=== PATIENT | female | born 1985 | race Caucasian/White ===

== ENCOUNTER 2023-12-06 11:32 | Outpatient (REF) | payer OTHER, SELFPAY ==
[2023-12-06 13:25] LABS: Influenza Virus A Antigen Negative; Influenza Virus B Antigen Negative; Internal Control Within Normal Limits; Respiratory Syncytial Virus Not Detected (NOT DETECTE)
== END 2023-12-06 11:33 | disposition home or self-care (01) ==
LOC: LAB 11:32
PROVIDERS: PCP Family Medicine; Visit Provider Family Medicine
DX: J01.90 Acute sinusitis, unspecified (principal)
CPT/HCPCS: 87420; 87804

== ENCOUNTER 2024-08-29 06:31 | Outpatient (OUT) | payer OTHER, SELFPAY ==
[2024-08-29 06:49] LABS: Basophils Percent Auto 0.6 % (0.2-2.0); Eosinophils Absolute Auto 0.1 10^3/uL (0.0-0.7); Eosinophils Percent Auto 1.8 % (0.9-7.0); Hematocrit 39.5 % (36.0-48.0); Immature Granulocytes Abs Auto 0.01 10^3/uL (0.00-0.03); Immature Granulocytes Pct Auto 0.2 % (0.0-0.5); Lymphocytes Absolute Auto 1.6 10^3/uL (1.2-3.8); Lymphocytes Percent Auto 25.7 % (20.5-60.0); Mean Corpuscular HGB Conc 32.9 g/dL (29.9-35.2); Mean Corpuscular Hemoglobin 29.3 pg (26.7-34.0); Monocytes Absolute Auto 0.7 10^3/uL (0.3-0.8); Monocytes Percent Auto 11.1 % (1.7-12.0); Neutrophils Absolute Auto 3.8 10^3/uL (1.4-6.5); Neutrophils Percent Auto 60.6 % (43.0-75.0); Platelet Count 162 10^3/uL (150-450); Red Blood Count 4.44 10^6/uL (4.20-5.40); Red Cell Distribution Width 12.3 % (11.0-15.0); White Blood Count 6.2 10^3/uL (4.0-11.0)
[2024-08-29 07:19] LABS: Estimated Average Glucose 103 mg/dL; Glycohemoglobin A1C 5.2 % (4.5-6.2)
[2024-08-29 07:39] LABS: Alanine Aminotransferase 16 U/L (14-59); Albumin Level 3.5 g/dL (3.4-5.0); Alkaline Phosphatase 64 U/L (46-116); Anion Gap 14.9; Aspartate Amino Transferase 15 U/L (15-37); BUN Creatinine Ratio 12.4; Bilirubin Total 0.4 mg/dL (0.2-1.0); Calcium 8.6 mg/dL (8.5-10.1); Carbon Dioxide 24.6 mmol/L (21.0-32.0); Chloride 107 mmol/L (98-107); Estimated GFR (African America >60 (>=60 mL/min/1.73m^2); Estimated GFR (Non-African Ame 50 (>=60 mL/min/1.73m^2); Free T3 2.91 pg/mL (2.18-3.98); Globulin 3.5 g/dL; Glucose 92 mg/dL (74-106); HDL Cholesterol 58 mg/dL (40-60); Potassium 4.5 mmol/L (3.5-5.1); Sodium 142 mmol/L (136-145); Thyroid Stimulating Hormone 3.392 uIU/mL (0.358-3.740); Triglycerides 87 mg/dL (<=150); VLDL CHOLESTEROL 17.4 mg/dL
[2024-08-29 07:52] LABS: Cholesterol 186 mg/dL (<=200)
[2024-08-29 07:55] LABS: Chol HDL Ratio 3.2
[2024-08-30 09:11] LABS: Insulin 9.7 uIU/mL (2.6-24.9)
== END 2024-08-29 06:32 | disposition home or self-care (01) ==
LOC: LAB 06:31
PROVIDERS: PCP Family Medicine; Visit Provider Nurse Practitioner Family
DX: Z00.00 Encounter for general adult medical examination without abnormal findings (principal); E03.9 Hypothyroidism, unspecified
CPT/HCPCS: 36415; 80053; 80061; 83036; 83525; 84436; 84443; 84481; 85025

== ENCOUNTER 2025-06-27 06:38 | Outpatient (OUT) | payer OTHER, SELFPAY ==
--- OUTSIDE RECORDS SUMMARY | 2025-06-27 06:41 | XMS_ITS | CCD ---
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 Name Role Phone Cali Bowen Unavailable HOY ., DR BONE Admitting Unavailable HOY ., DR BONE Attending Unavailable HOY ., DR BONE Primary Care Unavailable HOY ., DR BONE Consulting Unavailable HOY ., DR BONE Admitting Unavailable HOY ., DR BONE Attending Unavailable HOY ., DR BONE Primary Care Unavailable HOY ., DR BONE Consulting Unavailable HOY ., DR BONE Admitting Unavailable HOY ., DR BONE Attending Unavailable HOY ., DR BONE Primary Care Unavailable HOY ., DR BONE Consulting Unavailable HOY ., DR BONE Admitting Unavailable HOY ., DR BONE Attending Unavailable HOY ., DR BONE Primary Care Unavailable HOY ., DR BONE Consulting Unavailable HOY ., DR BONE Admitting Unavailable HOY ., DR BONE Attending Unavailable HOY ., DR BONE Primary Care Unavailable HOY ., DR BONE Consulting Unavailable HOY ., DR BONE Admitting Unavailable HOY ., DR BONE Attending Unavailable HOY ., DR BONE Primary Care Unavailable HOY ., DR BONE Consulting Unavailable HOY ., DR BONE Admitting Unavailable HOY ., DR BONE Attending Unavailable HOY ., DR BONE Primary Care Unavailable HOY ., DR BONE Consulting Unavailable FRANK, AHMAD Admitting Unavailable FRANK, AHMAD Attending Unavailable HOY ., DR BONE Primary Care Unavailable FRANK, AHMAD Consulting Unavailable FRANK, AHMAD Admitting Unavailable FRANK, AHMAD Attending Unavailable HOY ., DR BONE Primary Care Unavailable Allergies Allergy Classification Reported Allergen(s) Allergy Type Date of Onset Reaction(s) Facility (1 source) Latex Drug allergy rash [facility] Other (2 sources) Desonide Drug Allergy 11-23-2013 [facility] (2 sources) Latex Drug allergy (disorder) 07-17-2013 [facility] Medications Current Medications Medication Drug Class(es) Dates Sig (Normalized) Sig (Original) azithromycin 250 mg oral tablet (1 source) Macrolide Antimicrobial Zithromax Z-Jed 250 MG 2 tablet on the first day, then 1 tablet daily for 4 days Orally Once a day for 5 day(s) Active benzonatate 200 mg oral capsule (1 source) Non-narcotic Antitussive Start: 03-28-2022 take 1 capsule by mouth every eight hours Benzonatate 200 MG 1 capsule Orally Three times a day for 5 day(s) February, Active lidocaine hydrochloride 20 mg/ml mucous membrane topical solution (1 source) Antiarrhythmic, Amide Local Anesthetic Start: 03-28-2022 take 10 mL by mouth every three hours Lidocaine Viscous 2% 10 ml swish in mouth, gargle, and spit. DO NOT swallow every 3 hrs for 2 days February, Active predniSONE 20 mg oral tablet (1 source) Start: 03-28-2022 take 1 tablet by mouth every twelve hours predniSONE 20 MG 1 tablet Orally twice a day for 5 days February, Active Problems Problem Classification Problem Date Documented Date Episodic/Chronic Asthma (2 sources) Asthmatic bronchitis; Translations: [Unspecified asthma with (acute) exacerbation] Onset: 03-28-2022 Resolved: 03-28-2022 Chronic Diabetes mellitus without complication (1 source) Other abnormal glucose; Translations: [OTHER ABNORMAL GLUCOSE] Onset: 01-23-2023 Episodic Nutritional deficiencies (4 sources) Vitamin D deficiency, unspecified; Translations: [VITAMIN D DEFICIENCY UNSPECIFIED] Onset: 09-22-2022 Chronic Other upper respiratory infections (2 sources) Sore throat symptom; Translations: [Acute pharyngitis, unspecified] Onset: 03-28-2022 Resolved: 03-28-2022 Episodic Thyroid disorders (9 sources) Thyrotoxicosis with diffuse goiter without thyrotoxic crisis or storm; Translations: [Hypothyroidism, unspecified] Onset: 08-31-2022 Chronic Results Test Name Value Interpretation Reference Range Facility INSULINon 01-21-2023 Insulin 13.7 uIU/mL Normal 2.6-24.9 [facility] Comment on above: Performed By: #### F T3, TSH, T4 #### [facility] [address] [address] [address] Ramsey Lambert GLYCOHEMOGLOBIN A1Con 2022 ADA RECOMMENDATION SEE BELOW Normal [facility] Comment on above: Result Comment: ADA RECOMMENDED LIMIT 4.0 - 6.0 ADA THERAPEUTIC TARGET < 7.0 ACTION SUGGESTED > 7.0 Performed By: #### F T3, TSH, T4 #### [facility] [address] [address] [address] Ramsey Lambert Glucose [Mass/Vol] 97 mg/dL Normal [facility] Comment on above: Performed By: #### F T3, TSH, T4 #### [facility] [address] [place] [address] Dr. Ramsey Lambert HbA1c (Bld) [Mass fraction] 5.0 % Normal 4.5-6.2 [facility] Comment on above: Performed By: #### F T3, TSH, T4 #### [facility] [address] [place] [address] Dr. Ramsey Lambert FREE THYROXINE INDEX T7on FTI 2.91 Normal 1.30-4.50 [facility] Comment on above: Performed By: #### F T3, TSH, T4 #### [facility] [address] [place] [address] Dr. Ramsey Lambert T3U 35.0 % Normal 30.0-39.0 [facility] Comment on above: Performed By: #### F T3, TSH, T4 #### [facility] [address] [place] [address] Dr. Ramsey Lambert T4 [Mass/Vol] 8.30 ug/dL Normal 4.80-13.90 [facility] Comment on above: Performed By: #### F T3, TSH, T4 #### [facility] [address] [place] [address] Dr. Ramsey Lambert TSHon 01-11-2023 TSH 0.547 uIU/mL Normal 0.358-3.740 [facility] Comment on above: Performed By: #### F T3, TSH, T4 #### [facility] [address] [place] [address] Dr. Ramsey Lambert THYROID ANTIBODIESon 023 Thyroglobulin Antibody 1.1 IU/mL Critically high 0.0-0.9 [facility] Comment on above: Result Comment: Thyr oglobulin Antibody measured by Norberto Jennings Methodology Performed By: #### T HYRABS #### [facility] [address] [place] [address] Dr. Ramsey Lambert Thyroid Peroxidase (TPO) Ab 99 IU/mL Critically high 0-34 [facility] Comment on above: Performed By: #### T HYRABS #### [facility] [address] [place] [address] Dr. Ramsey Lambert FREE T3on 11-12-2022 FREE T3 2.46 pg/mlL Normal 2.18-3.98 [facility] Comment on above: Performed By: #### F T3, TSH, T4 #### [facility] [address] [place] [address] Dr. Ramsey Lambert T4on 11-12-2022 T4 [Mass/Vol] 9.10 ug/dL Normal 4.80-13.90 [facility] Comment on above: Performed By: #### F T3, TSH, T4 #### [facility] [address] [place] [address] Dr. Ramsey Lambert TSHon 11-12-2022 TSH 0.512 uIU/mL Normal 0.358-3.740 [facility] Comment on above: Performed By: #### F T3, TSH, T4 #### [facility] [address] [place] [address] Dr. Ramsey Lambert THYROID ANTIBODIESon 022 Thyroglobulin Antibody 1.1 IU/mL Critically high 0.0-0.9 [facility] Comment on above: Result Comment: Thyr oglobulin Antibody measured by Norberto Jennings Methodology Performed By: #### F T3, TSH, T4 #### [facility] [address] [place] [address] Dr. Ramsey Lambert Thyroid Peroxidase (TPO) Ab 117 IU/mL Critically high 0-34 [facility] Comment on above: Performed By: #### F T3, TSH, T4 #### [facility] [address] [address] [address] Ramsey Lambert VITAMIN D 25 OHon 09-22-2022 VIT D 25-OH 24.6 ng/mL Normal [facility] Comment on above: Performed By: #### V ITAD #### [facility] [address] [address] [address] Ramsey Lambert VIT D RANGES SEE BELOW Normal [facility] Comment on above: Result Comment: <20 ng/mL Vit D deficient 20 - <30 ng/mL Vit D insufficient 30 - 100 ng/mL Vit D sufficient >100 ng/mL Potential Toxicity Performed By: #### V ITAD #### [facility] [address] [place] [address] Dr. Ramsey Lambert FREE T3on 08-31-2022 FREE T3 2.50 pg/mlL Normal 2.18-3.98 [facility] Comment on above: Performed By: #### F T3, T4, TSH #### [facility] [address] [place] [address] Dr. Ramsey Lambert T4on 08-31-2022 T4 [Mass/Vol] 7.10 ug/dL Normal 4.80-13.90 [facility] Comment on above: Performed By: #### F T3, TSH, T4 #### [facility] [address] [place] [address] Dr. Ramsey Lambert TSHon 08-31-2022 TSH 3.127 uIU/mL Normal 0.358-3.740 [facility] Comment on above: Performed By: #### F T3, TSH, T4 #### [facility] [address] [place] [address] Dr. Ramsey Lambert FREE T3on 08-02-2022 FREE T3 1.83 pg/mlL Critically low 2.18-3.98 [facility] Comment on above: Performed By: #### F T3, TSH, T4 #### [facility] [address] [place] [address] Dr. Ramsey Lambert T4on 08-02-2022 T4 [Mass/Vol] 6.10 ug/dL Normal 4.80-13.90 [facility] Comment on above: Performed By: #### F T3, TSH, T4 #### [facility] [address] [address] [address] Ramsey Lambert TSHon 08-02-2022 TSH 10.833 uIU/mL Critically high 0.358-3.740 [facility] Comment on above: Performed By: #### F T3, TSH, T4 #### [facility] [address] [place] [address] Dr. Ramsey Lambert T4, T3U, FTI [facility]ABCOR[facility]on 06-25 Free Thyroxine Index 0.9 Critically low 1.2-4.9 [facility] Comment on above: Performed By: #### T HYLC #### [facility] [address] [place] [address] Dr. Ramsey Lambert T3 Uptake 24 % Normal 24-39 [facility] Comment on above: Performed By: #### T HYLC #### [facility] [address] [address] [address] Ramsey Lambert T4 [Mass/Vol] 3.8 ug/dL Critically low 4.5-12.0 [facility] Comment on above: Performed By: #### T HYLC #### [facility] [address] [place] [address] Dr. Ramsey Lambert FREE T3on 06-24-2022 FREE T3 1.83 pg/mlL Critically low 2.18-3.98 [facility] Comment on above: Performed By: #### F T3, TSH #### [facility] [address] [place] [address] Dr. Ramsey Lambert TSHon 06-24-2022 TSH 38.621 uIU/mL Critically high 0.358-3.740 [facility] Comment on above: Performed By: #### F T3, TSH #### [facility] [address] [place] [address] Dr. Ramsey Lambert [facility] CBC AUTO DIFFon 06-17-2022 BASO # 0.0 103/ul Normal 0.0-0.1 [facility] Comment on above: Performed By: #### F T3, TSH, T4 #### [facility] [address] [place] [address] Dr. Ramsey Lambert Basophils/100 WBC (Bld) 0.6 % Normal 0.2-2.0 [facility] Comment on above: Performed By: #### F T3, TSH, T4 #### [facility] [address] [place] [address] Dr. Ramsey Lambert EO # 0.1 103/ul Normal 0.0-0.7 [facility] Comment on above: Performed By: #### F T3, TSH, T4 #### [facility] [address] [place] [address] Dr. Ramsey Lambert Eosinophils/100 WBC (Bld) 2.1 % Normal 0.9-7.0 [facility] Comment on above: Performed By: #### F T3, TSH, T4 #### [facility] [address] [place] [address] Dr. Ramsey Lambert Erythrocyte distribution width (RBC) [Ratio] 12.4 % Normal 11.0-15.0 [facility] Comment on above: Performed By: #### F T3, TSH, T4 #### [facility] [address] [place] [address] Dr. Ramsey Lambert Hematocrit (Bld) [Volume fraction] 40.4 % Normal 36.0-48.0 [facility] Comment on above: Performed By: #### F T3, TSH, T4 #### [facility] [address] [place] [address] Dr. Ramsey Lambert Hemoglobin (Bld) [Mass/Vol] 13.3 g/dL Normal 12.0-16.0 [facility] Comment on above: Performed By: #### F T3, TSH, T4 #### [facility] [address] [place] [address] Dr. Ramsey Lambert IG # 0.00 10e3/ul Normal 0.00-0.03 [facility] Comment on above: Performed By: #### F T3, TSH, T4 #### [facility] [address] [address] [address] Ramsey Lambert IG % 0.0 % Normal 0.0-0.5 [facility] Comment on above: Performed By: #### F T3, TSH, T4 #### [facility] [address] [place] [address] Dr. Ramsey Lambert LYMPH # 2.2 103/ul Normal 1.2-3.8 [facility] Comment on above: Performed By: #### F T3, TSH, T4 #### [facility] [address] [place] [address] Dr. Ramsey Lambert Lymphocytes/100 WBC (Bld) 46.3 % Normal 20.5-60.0 [facility] Comment on above: Performed By: #### F T3, TSH, T4 #### [facility] [address] [place] [address] Dr. Ramsey Lambert MCH (RBC) [Entitic mass] 29.6 pg Normal 26.7-34.0 [facility] Comment on above: Performed By: #### F T3, TSH, T4 #### [facility] [address] [place] [address] Dr. Ramsey Lambert MCHC (RBC) [Mass/Vol] 32.9 g/dL Normal 29.9-35.2 [facility] Comment on above: Performed By: #### F T3, TSH, T4 #### [facility] [address] [place] [address] Dr. Ramsey Lambert MCV (RBC) [Entitic vol] 90.0 fL Normal 81.0-99.0 [facility] Comment on above: Performed By: #### F T3, TSH, T4 #### [facility] [address] [place] [address] Dr. Ramsey Lambert MONO # 0.5 103/ul Normal 0.3-0.8 [facility] Comment on above: Performed By: #### F T3, TSH, T4 #### [facility] [address] [place] [address] Dr. Ramsey Lambert Monocytes/100 WBC (Bld) 10.3 % Normal 1.7-12.0 [facility] Comment on above: Performed By: #### F T3, TSH, T4 #### [facility] [address] [place] [address] Dr. Ramsey Lambert NEUT # 1.9 103/ul Normal 1.4-6.5 [facility] Comment on above: Performed By: #### F T3, TSH, T4 #### [facility] [address] [place] [address] Dr. Ramsey Lambert Neutrophils/100 WBC (Bld) 40.7 % Critically low 43.0-75.0 [facility] Comment on above: Performed By: #### F T3, TSH, T4 #### [facility] [address] [place] [address] Dr. Ramsey Lambert Platelet mean volume (Bld) [Entitic vol] 11.5 fL Normal 9.5-13.5 [facility] Comment on above: Performed By: #### F T3, TSH, T4 #### [facility] [address] [place] [address] Dr. Ramsey Lambert PLT 203 103/ul Normal 150-450 [facility] Comment on above: Performed By: #### F T3, TSH, T4 #### [facility] [address] [place] [address] Dr. Ramsey Lambert RBC 4.49 106/ul Normal 4.20-5.40 [facility] Comment on above: Performed By: #### F T3, TSH, T4 #### [facility] [address] [place] [address] Dr. Ramsey Lambert WBC 4.8 103/ul Normal 4.0-11.0 [facility] Comment on above: Performed By: #### F T3, TSH, T4 #### [facility] [address] [place] [address] Dr. Ramsey Lambert [employer] PROFILEon 022 Albumin [Mass/Vol] 4.1 g/dL Normal 3.4-5.0 [facility] Comment on above: Performed By: #### H FPF #### [facility] [address] [place] [address] Dr. Ramsey Lambert Albumin/Globulin [Mass ratio] 1.3 {ratio} Normal [facility] Comment on above: Performed By: #### H FPF #### [facility] [address] [address] [address] Ramsey Lambert ALP [Catalytic activity/Vol] 55 U/L Normal 46-116 [facility] Comment on above: Performed By: #### H FPF #### [facility] [address] [address] [address] Ramsey Lambert ALT [Catalytic activity/Vol] 16 U/L Normal 14-59 [facility] Comment on above: Performed By: #### H FPF #### [facility] [address] [address] [address] Ramsey Lambert AST [Catalytic activity/Vol] 16 U/L Normal 15-37 [facility] Comment on above: Performed By: #### H FPF #### [facility] [address] [address] [address] Ramsey Lambert Bilirubin [Mass/Vol] 0.4 mg/dL Normal 0.2-1.0 [facility] Comment on above: Performed By: #### H FPF #### [facility] [address] [address] [address] Ramsey Lambert Calcium [Mass/Vol] 8.7 mg/dL Normal 8.5-10.1 [facility] Comment on above: Performed By: #### H FPF #### [facility] [address] [address] [address] Ramsey Lambert Chloride [Moles/Vol] 104 mmol/L Normal 98-107 [facility] Comment on above: Performed By: #### H FPF #### [facility] [address] [place] [address] Dr. Ramsey Lambert CHOL-HDL RATIO NORM SEE BELOW Normal [facility] Comment on above: Result Comment: 3.3 - 4.4 LOW RISK 4.4 - 7.1 AVERAGE RISK 7.1 - 11.0 MODERATE RISK >11.0 HIGH RISK Performed By: #### H FPF #### [facility] [address] [address] [address] Ramsey Lambert Cholesterol [Mass/Vol] 209 mg/dL Critically high <=200 [facility] Comment on above: Performed By: #### H FPF #### [facility] [address] [address] [address] Ramsey Lambert Cholesterol in HDL [Mass/Vol] 64 mg/dL Critically high 40-60 [facility] Comment on above: Performed By: #### H FPF #### [facility] [address] [address] [address] Ramsey Lambert Cholesterol in LDL [Mass/Vol] 132.8 mg/dL Normal [facility] Comment on above: Performed By: #### H FPF #### [facility] [address] [address] [address] Ramsey Lambert Cholesterol.total/Ch olesterol in HDL [Mass ratio] 3.3 {ratio} Normal [facility] Comment on above: Performed By: #### H FPF #### [facility] [address] [address] [address] Ramsey Lambert CO2 [Moles/Vol] 25.9 mmol/L Normal 21.0-32.0 [facility] Comment on above: Performed By: #### H FPF #### [facility] [address] [address] [address] Ramsey Lambert Creatinine [Mass/Vol] 1.02 mg/dL Normal 0.55-1.02 [facility] Comment on above: Performed By: #### H FPF #### [facility] [address] [address] [address] Ramsey Lambert Globulin (S) [Mass/Vol] 3.2 g/dL Normal [facility] Comment on above: Performed By: #### H FPF #### [facility] [address] [address] [address] Ramsey Lambert Glucose [Mass/Vol] 93 mg/dL Normal 74-106 [facility] Comment on above: Performed By: #### H FPF #### [facility] [address] [address] [address] Ramsey Lambert HDL NORMAL > or = 60 mg/dl - LOW CARDIOVASCULAR RISK <40 mg/dl - HIGH CARDIOVASCULAR RISK Normal [facility] Comment on above: Performed By: #### H FPF #### [facility] [address] [address] [address] Ramsey Lambert LDL CALC NORMAL SEE BELOW Normal [facility] Comment on above: Result Comment: <100 mg/dl OPTIMAL 100 - 129 mg/dl NEAR OR ABOVE OPTIMAL 130 - 159 mg/dl BORDERLINE HIGH 160 - 189 mg/dl HIGH >190 mg/dl VERY HIGH Performed By: #### H FPF #### [facility] [address] [address] [address] Ramsey Lambert Potassium [Moles/Vol] 3.9 mmol/L Normal 3.5-5.1 [facility] Comment on above: Performed By: #### H FPF #### [facility] [address] [address] [address] Ramsey Lambert Protein [Mass/Vol] 7.3 g/dL Normal 6.4-8.2 [facility] Comment on above: Performed By: #### H FPF #### [facility] [address] [address] [address] Ramsey Lambert Sodium [Moles/Vol] 139 mmol/L Normal 136-145 [facility] Comment on above: Performed By: #### H FPF #### [facility] [address] [address] [address] Ramsey Lambert Triglyceride [Mass/Vol] 61 mg/dL Normal <=150 [facility] Comment on above: Performed By: #### H FPF #### [facility] [address] [address] [address] Ramsey Lambert TSH 46.154 uIU/mL Critically high 0.358-3.740 [facility] Comment on above: Performed By: #### H FPF #### [facility] [address] [address] [address] Ramsey Lambert Urea nitrogen [Mass/Vol] 12.0 mg/dL Normal 7.0-18.0 [facility] Comment on above: Performed By: #### H FPF #### [facility] [address] [address] [address] Ramsey Lambert Urea nitrogen/Creatinine [Mass ratio] 11.8 mg/mg Normal [facility] Comment on above: Performed By: #### H FPF #### [facility] [address] [address] [address] Ramsey Lambert VLDL CALC 12.2 mg/dL Normal [facility] Comment on above: Performed By: #### H FPF #### [facility] [address] [address] [address] Ramsey Lambert Quick Strepon 03-28-2022 S. pyogenes Org specific cx Ql (Throat) Positive [facility] Other Quick Strep [facility] Other Vital Signs Date Time Vital Sign Value Performing Clinician Facility 03-28-2022 14:30-0400 Body height 170.18 cm Cali Bowen Other [facility] Other 03-28-2022 14:30-0400 Body mass index (BMI) [Ratio] 25.53 kg/m2 Cali Bowen Other [facility] Other 03-28-2022 14:30-0400 Body temperature 98 [degF] Cali Bowen Other [facility] Other 03-28-2022 14:30-0400 Body weight 73.94 kg Cali Bowen Other [facility] Other 03-28-2022 14:30-0400 Respiratory rate 18 /min Cali Bowen Other [facility] Other 03-28-2022 14:30-0400 SaO2% (BldA) [Mass fraction] 98 % Cali Bowen Other [facility] Other Encounters Encounter Date Encounter Type Care Provider Facility Start: 01-20-2023 End: 01-21-[address] SMITHA SANTOS . Facility:[facility] Start: 01-11-2023 End: 01-12-[address] SMITHA SANTOS . Facility:[facility] Start: 12-21-2022 ambulatory BARON MARIE Facility: [facility] Start: 11-12-2022 End: 11-13-[address] SMITHA SANTOS . Facility:[facility] Start: 09-22-2022 End: 09-23-2022 ambulatory BARON MARIE Facility:[facility] Start: 08-31-2022 End: 09-01-[address] SMITHA SANTOS . Facility:[facility] Start: 08-02-2022 End: 08-03-[address] SMITHA SANTOS . Facility:[facility] Start: 06-24-2022 End: 06-25-[address] SMITHA SANTOS . Facility:[facility] Start: 06-17-2022 End: 06-18-[address] SMITHA SANTOS . Facility:[facility] Start: 03-28-2022 End: 03-28-2022 ambulatory Cali Bowen Other [facility] Other Start: 03-28-2022 Office outpatient ne w 30 minutes Cali Bowen [facility] Payers Date Payer Category Payer Unknown [id number] .[id number] [id number] 1987 Unknown [id number] .16.84 [id number] 1987 Unknown [id number] 2.16.84 [id number] 1987 Unknown [id number] 2.16.84 [id number] 1987 Unknown [id number] 2.16.84 [id number] 1987 Unknown [id number] 2.16.84 [id number] 1987 Unknown [id number] 2.16.84 [id number] 1987 Unknown [id number] 2.16.84 [id number] 1959 Self-pay [id number] 1957 Unknown [id number] 2. [id number] Unknown [id number] 2.16.84 [id number] Social History Date Type Detail Facility Sex Assigned At [facility] Other Evaluation note 03-28-2022 Note Date & Type Note Facility 03-28-2022 Evaluation note Encounter Date Diagnosis Assessment Notes February, Sore throat (ICD-10 - J02.9) February, Asthmatic bronchitis with acute exacerbation, unspecified asthma severity, unspecified whether persistent (ICD-10 - J45.901) Take medications as prescribed. Drink plenty of fluids. Follow-up with your primary doctor in 3 to 5 days symptoms do not improve. I spent a considerable amount of time with the patient as she is a new patient to [facility] and thus the higher level of billing. Given the patient's sore throat, rapid strep was ordered. Rapid strep is positive. Signs and symptoms are also consistent with acute asthmatic bronchitis. We will treat the patient with Z-Jed, benzonatate, prednisone, and lidocaine viscous for her sore throat. Educated patient about the importance of drinking plenty of fluids and getting plenty of rest. She is advised to follow-up with her primary doctor if she is still having symptoms following treatment. Patient understands and agrees the plan. [facility] Other History general Narrative - Reported Note Date & Type Note Facility History general Narrative - Reported Type Medical History Asthma Medical History DVT's Surgical History Appendectomy 2015 Surgical History Oral surgery Hospitalization History Covid 2020 [facility] Other Summary Purpose Family History No Family History Records Found Advance Directives No Advanced Directives Records Found Additional Source Comments REASON FOR VISIT (unrecogniz ed section and content) POSS STREP, SORE THROAT, SOB INFORMATION SOURCE (unrecogn ized section and content) DATE CREATED AUTHOR 01/23/2023 Brook malave FOR RECORDS PERTAINING TO PATIENTS WHO ARE OR HAVE BEEN ENROLLED IN A CHEMICAL DEPENDENCY/SUBSTANCEABUSE PROGRAM, SOME INFORMATION MAY BE OMITTED. This clinical summary was aggregated from multiple sources. Caution should be exercised in using it in the provision of clinical care. This summary normalizes information from multiple sources, and as a consequence, information in this document may materially change the coding, format and clinical context of patient data. In addition, data may be omitted in some cases. CLINICAL DECISIONS SHOULD BE BASED ON THE PRIMARY CLINICAL RECORDS. [facility] [employer] provides no warranty or guarantee of the accuracy or completeness of information in this document.
[2025-06-27 07:49] LABS: Free T3 2.65 pg/mL (2.18-3.98); Thyroid Stimulating Hormone 2.065 uIU/mL (0.358-3.740)
== END 2025-06-27 06:39 | disposition home or self-care (01) ==
LOC: LAB 06:39
PROVIDERS: PCP Family Medicine; Visit Provider Family Medicine
DX: E03.9 Hypothyroidism, unspecified (principal)
CPT/HCPCS: 36415; 84436; 84443; 84481